=== PATIENT | female | born 1935 | race Caucasian/White ===

== ENCOUNTER 2019-06-23 23:48 | Emergency (ER) | payer OTHER ==
[~2019-06-23] VITALS: Ht 149.9 cm; Wt 61.2 kg
[2019-06-24] MEDS ORDERED: KAPSPARGO SPRI100 MG PO (00:06)
[2019-06-24] MEDS ORDERED: SIMVASTATIN (00:07)
[2019-06-24] MEDS ORDERED: SYNTHROID100 MCG PO (00:08)
[2019-06-24] MEDS ORDERED: PEPCID40 MG PO (06:00)
== END 2019-06-24 06:08 | disposition home or self-care (01) ==
LOC: ER 23:48
DX: B34.9 Viral infection, unspecified (principal)